=== PATIENT | male | born 1980 | race Two or more races ===

== ENCOUNTER 2023-03-01 20:56 | Emergency (ER) | payer MEDICARE, OTHER ==
[~2023-03-01] VITALS: Ht 170.2 cm; Wt 78.3 kg
[2023-03-01 22:59] LABS: Basophils # (auto) 0 10 ^3/uL (0-0.2); Basophils % (auto) 0.5 % (0.0-2.0); Eosinophils # (auto) 0.1 10 ^3/uL (0-0.8); Eosinophils % (auto) 0.6 % (0.0-7.0); Hematocrit 46.1 % (41.0-53.0); Hemoglobin 15.9 g/dL (13.5-17.5); Lymphocytes # (auto) 2.5 10 ^3/uL (0.4-5.4); Lymphocytes % (auto) 24.6 % (10.0-50.0); Mean Corpuscular Hemoglobin 30.5 pg (28.0-32.0); Mean Corpuscular Hgb Conc. 34.5 g/dL (32.0-36.0); Mean Corpuscular Volume 88.6 fL (80.0-100.0); Monocytes # (auto) 0.7 10 ^3/uL (0-1.3); Monocytes % (auto) 6.5 % (0.0-12.0); Neutrophils # (auto) 6.9 10 ^3/uL (1.6-8.6); Neutrophils % (auto) 67.8 % (37.0-80.0); Red Cell Distribution Width 13.3 % (11.8-14.3); White Blood Cell 10.1 10^3/uL (4.4-10.8)
[2023-03-01 23:22] LABS: Alanine Aminotransferase 32 U/L (7-40); Albumin 4.4 g/dL (3.2-4.8); Alkaline Phosphatase 121 U/L (46-116); Anion Gap 11 (5-15); Aspartate Aminotransferase 45 U/L (13-40); Blood Alcohol 162.2 mg/dL (<10); Blood Urea Nitrogen 7 mg/dL (9-23); Calcium 8.9 mg/dL (8.7-10.4); Carbon Dioxide 24 mmol/L (20-30); Chloride 103 mmol/L (98-107); Glucose 103 mg/dL (74-106); Lipase 45 U/L (12-53); Magnesium 2.2 mg/dL (1.6-2.6); Potassium 3.7 mmol/L (3.5-5.1); Sodium 138 mmol/L (136-145)
[2023-03-01 23:23] LABS: Bilirubin, Total 1.2 mg/dL (0.2-1.0); Total Protein 7.6 g/dL (5.7-8.2)
[2023-03-02 01:02] LABS: Urine Bacteria MOD /hpf (None Seen); Urine Blood 1+ /uL (Negative); Urine Clarity HAZY (Clear); Urine Color Yellow (Yellow); Urine Hyaline Cast FEW /lpf (0 - 2); Urine Mucus FEW (None Seen); Urine Protein, UAD 1+ (Negative); Urine Specific Gravity 1.022 (1.001-1.035); Urine Urobilinogen Normal (Negative); Urine WBC 28 /hpf (0 - 3)
[2023-03-02 01:07] LABS: Amphetamine Screen, Urine Neg (NEGATIVE); Barbiturate Scree,Urine Neg (NEGATIVE); Benzodiazephine Screen, Urine Neg (NEGATIVE); Cocaine Screen, Urine Neg (NEGATIVE); Opiate Scree,Urine Neg (NEGATIVE); Phencyclidine Screen, Urine Neg (NEGATIVE)
[2023-03-02 01:08] LABS: Cannabinoid Screen, Urine Neg (NEGATIVE)
[2023-03-02 04:11] VITALS: TEMP 98.1
[2023-03-02 04:13] VITALS: PULSE 100; RESP 18; O2SAT 95
[2023-03-02] MEDS ORDERED: LORazepam 0.5 MG TAB PO ONE (04:15)
[2023-03-02] MEDS ORDERED: SODIUM CHLORIDE 0.9% 1,000 ML IV ONE (04:15)
[2023-03-02] MEDS ORDERED: METOPROLOL TARTRATE 1MG/1ML-5ML VIAL IV ONE (05:00)
[2023-03-02] MEDS ORDERED: PANTOPRAZOLE 40 MG/10 ML VIAL INJ IV ONE (05:00)
[2023-03-02] MEDS ORDERED: SODIUM CHLORIDE 0.9% 2,000 ML IV ONE (05:00)
[2023-03-02 07:20] VITALS: BP 129/74; PULSE 83; RESP 18; O2SAT 93
== END 2023-03-02 07:23 | disposition home or self-care (01) ==
LOC: ER 20:56
DX: F10.129 Alcohol abuse with intoxication, unspecified (principal); E78.5 Hyperlipidemia, unspecified; I10 Essential (primary) hypertension
CPT/HCPCS: 36415; 80053; 80307; 80320; 81001; 82140; 82962; 83690; 83735; 84484; 85025; 96361; 96374; 96375; 99285; C9113; J7030; 93005